=== PATIENT | female | born 1960 | race Caucasian/White ===

== ENCOUNTER 2016-03-18 08:33 | Emergency (ER) | payer OTHER ==
[~2016-03-18] VITALS: Ht 132.1 cm; Wt 89.0 kg
[~2016-03-18 08:33] MED LIST: CIPR750T10 PO; FLAG500T PO; LORA0.5T PO; MOBI7.5T PO; PRAV10 PO; PRIN10TA PO; PROM25SU8 PO; ULTR50TA PO
[2016-03-18 08:37] VITALS: BP 184/132; PULSE 99; RESP 18; TEMP 99.5; O2SAT 97
[2016-03-18] MEDS ORDERED: TRAM50TA PO (08:58)
[2016-03-18] MEDS ORDERED: MOBI7.5T PO (08:58)
[2016-03-18] MEDS ORDERED: LISI10TA3 PO (08:58)
[2016-03-18] MEDS ORDERED: LORA-373 PO (08:58)
[2016-03-18] MEDS ORDERED: PRAV20TA PO (08:58)
[2016-03-18] MEDS ORDERED: PROM25TA5 PO (09:12)
[2016-03-18] MEDS ORDERED: CIPR-9 PO (09:12)
[2016-03-18] MEDS ORDERED: METR-1 PO (09:12)
--- NOTE | 2016-03-18 09:13 | PD ---
HPI Chief Complaint: GI Complaint Time Seen by Provider: 09:07 Travel History International Travel<30 days: No Contact w/Intl Traveler<30days: No Traveled to known affect area: No History of Present Illness HPI Patient presents with complaints of left lower quadrant abdominal pain. Recurrent diverticulitis. Denies any blood per stool. Followed by gastroenterology for history of GI bleed and the aforementioned recurrent diverticulitis. Reports mild nausea. Denies vomiting. Denies fever. No new rashes. PFSH Past Medical History Arthritis: Yes (knee right) Asthma: No Autoimmune Disease: No Anxiety: Yes Depression: No Heart Rhythm Problems: No Cancer: Yes ( L BREAST CA 1993) Cardiovascular Problems: Yes (HTN) High Cholesterol: Yes Chemotherapy: No Chest Pain: No Congestive Heart Failure: No COPD: No Cerebrovascular Accident: No Diabetes: Yes (DIET CONTROLLED) Patient Takes Glucophage: No Diminished Hearing: No Diverticulitis: Yes Endocrine: Yes Gastrointestinal Disorders: Yes GERD: No Genitourinary: No Hiatal Hernia: No Hypertension: Yes Immune Disorder: No Kidney Stones: Yes Musculoskeletal: Yes (SPINAL STENOSIS) Neurologic: No Psychiatric: Yes Reproductive: No Respiratory: No Immunizations Current: Yes Migraines: No Pneumonia: Yes (CHILDHOOD) Radiation Therapy: Yes Renal Failure: No Seizures: No Sickle Cell Disease: No Sleep Apnea: No Thyroid Disease: No Ulcer: Yes (bleeding ulcer in the past) PNEUMOCCOCAL Vaccine (Year): 2009 ?: Not Menopausal: Yes : 5 Para: 0 Miscarriage: 5 Ectopic : Yes (1993) Past Surgical History Abdominal Surgery: Yes AICD: No Arteriovenous Shunt: No Cardiac Surgery: No Cholecystectomy: Yes (2006) Ear Surgery: Yes (BILATERAL MYRINGOTOMIES) Endocrine Surgery: No Eye Surgery: No Genitourinary Surgery: No Gynecologic Surgery: Yes (LEFT BREAST LUMPECTOMIES X2) Hysterectomy: Yes Insulin Pump: No Joint Replacement: Yes (right knee) Neurologic Surgery: Yes (LUM JONES) Oral Surgery: No Pacemaker: No Thoracic Surgery: No Tonsillectomy: Yes Other Surgery: Yes (LUMBAR LAMI) Social History Alcohol Use: Yes (1-2 EVERY SIX MONTHS) Tobacco Use: No Substance Use: No Allergies-Medications (Allergen,Severity, Reaction): Coded Allergies: Penicillin (Verified Allergy, Severe, HIVES, 03/18/16) Reported Meds & Prescriptions Reported Meds & Active Scripts Active Reported Pravachol (Pravastatin) 20 Mg Tab 20 Mg PO DAILY Tramadol (Tramadol HCl) 50 Mg Tab 50 Mg PO Q4H PRN Mobic (Meloxicam) 7.5 Mg Tab 7.5 Mg PO DAILY Lorazepam 0.5 Mg Tab 0.5 Mg PO HS PRN Lisinopril 10 Mg Tab 10 Mg PO DAILY Review of Systems General / Constitutional: No: Fever Eyes: No: Visual changes HENT: No: Headaches Cardiovascular: No: Chest Pain or Discomfort Respiratory: No: Shortness of Breath Gastrointestinal: Positive: Nausea, Abdominal Pain Genitourinary: No: Dysuria Musculoskeletal: No: Pain Skin: No Rash Neurologic: No: Weakness Psychiatric: No: Depression Endocrine: No: Polydipsia Hematologic/Lymphatic: No: Easy Bruising Physical Exam Narrative GENERAL: Well-nourished, well-developed patient. SKIN: Warm and dry. HEAD: Normocephalic. EYES: No scleral icterus. No injection or drainage. NECK: Supple, trachea midline. No JVD or lymphadenopathy. CARDIOVASCULAR: Regular rate and rhythm without murmurs, gallops, or rubs. RESPIRATORY: Breath sounds equal bilaterally. No accessory muscle use. GASTROINTESTINAL: Abdomen soft, tender to palpation left lower quadrant, nondistended. MUSCULOSKELETAL: No cyanosis, or edema. BACK: Nontender without obvious deformity. No CVA tenderness. Data Data Last Documented VS Vital Signs Date Time Temp Pulse Resp B/P Pulse Ox O2 Delivery O2 Flow Rate FiO2 03/18/16 08:37 99.5 99 18 184/132 97 MDM Medical Decision Making Medical Screen Exam Complete: Yes Emergency Medical Condition: Yes Differential Diagnosis Diverticulitis, colitis, IBS Narrative Course Assessment and plan discussed with patient and at bedside Diagnosis Primary Impression: Diverticulitis Qualified Code: K57.32 - Diverticulitis of large intestine without perforation or abscess without bleeding Patient Instructions: General Instructions Additional Instructions: Encouraged high-fiber heart healthy diet. Encourage fluids. Encouraged to follow-up with GI Med/Other Pt SpecificInfo: Prescription(s) given Scripts Promethazine (Phenergan)25 Mg Tab25 Mg PO Q6H PRN (Nausea/Vomiting) #20 TAB Ref 0 Prov:Lincoln Miller MD 03/18/16 Metronidazole (Flagyl)500 Mg Zio509 Mg PO BID 10 Days Ref 0 Prov:Lincoln Miller MD 03/18/16 Ciprofloxacin (Cipro)500 Mg Pkg329 Mg PO BID 10 Days Ref 0 Prov:Lincoln Miller MD 03/18/16 Disposition: 01 DISCHARGE HOME Condition: Good Lincoln Miller MD Mar 18, 2016 09:13
== END 2016-03-18 09:20 | disposition home or self-care (01) ==
LOC: PHED 08:33
DX: K57.32 Diverticulitis of large intestine without perforation or abscess without bleeding (principal); R11.0 Nausea; I10 Essential (primary) hypertension; E11.9 Type 2 diabetes mellitus without complications; E78.00 Pure hypercholesterolemia, unspecified; Z87.19 Personal history of other diseases of the digestive system; Z87.39 Personal history of other diseases of the musculoskeletal system and connective tissue; Z85.3 Personal history of malignant neoplasm of breast; Z87.442 Personal history of urinary calculi; Z86.59 Personal history of other mental and behavioral disorders
CPT/HCPCS: 99283

== ENCOUNTER → 2016-05-08 | Day surgery (SDC) | payer OTHER ==
[~2016-05-08] MED LIST changes: +CIPR-9 PO; -CIPR750T10 PO; -FLAG500T PO; +HYDR-3533 PO; +LACTATED RINGER'S 1000 ML INJ 1,000 ML ONE; +LISI10TA3 PO; +LORA-373 PO; -LORA0.5T PO; +METR-1 PO; -PRAV10 PO; +PRAV20TA PO; -PRIN10TA PO; -PROM25SU8 PO; +PROM25TA5 PO; +PROPOFOL 200 MG/20 ML AMP IV ONE; +PROPOFOL 500 MG/50 ML BTL IV ONE; +TRAM50TA PO; -ULTR50TA PO
--- NOTE | 2016-05-08 10:22 | GIPROC ---
[facility] [address] [facility], [address] COLONOSCOPY PROCEDURE REPORT EXAM DATE: 05/08/2016 PATIENT NAME: Ayse Vazquez MR #: [id number] BIRTHDATE: 1960 ENDOSCOPIST: Marta Silver MD ORDER #: [id number] SPORTS ANALYST: Kamila Herrera RN STATUS: outpatient INDICATIONS: The patient is a 55 yr old female here for a colonoscopy due to h/o diverticolitis PROCEDURE PERFORMED: Colonoscopy, diagnostic MEDICATIONS: None and Per Anesthesia. PREP QUALITY: fair ESTIMATED BLOOD LOSS: None CONSENT: The patient understands the risks and benefits of the procedure and understands that these risks include, but are not limited to: sedation, allergic reaction, infection, perforation and/or bleeding. Alternative means of evaluation and treatment include, among others: physical exam, x-rays, and/or surgical intervention. The patient elects to proceed with this endoscopic procedure. medical equipment was checked for proper function. Hand hygiene and appropriate measures for infection prevention was taken. After the risks, benefits and alternatives of the procedure were thoroughly explained, Informed consent was verified, confirmed and timeout was successfully executed by the treatment team. A digital exam revealed no abnormalities of the rectum The EC-[id number] ([id number]) and [id number] ([id number]) endoscope was introduced through the anus and advanced to the cecum, which was identified by both the appendix and ileocecal valve. The instrument was then slowly withdrawn as the colon was fully examined. COLON FINDINGS: Moderate diverticulosis was noted throughout the entire examined colon. Some stool throughout the colon. The colon mucosa was otherwise normal. Retroflexed views revealed no abnormalities The scope was then completely withdrawn from the patient and the procedure terminated. ADVERSE EVENTS: There were no complications. IMPRESSIONS: 1. Moderate diverticulosis was noted throughout the entire examined colon 2. Some stool throughout the colon 3. The colon mucosa was otherwise normal 4. Retroflexed views revealed no abnormalities 5. Revealed no abnormalities of the rectum RECOMMENDATIONS: 1. Yearly hemoccult 2. High fiber diet RECALL: Return 5 years Colonoscopy Marta Silver MD eSigned: Marta Silver MD 05/08/2016 10:22 AM cc: Gen Garrett M.D. DOCUMENT ADDENDUM eSigned: Marta Silver MD 05/08/2016 10:37 AM Reason for addendum: [x] Correction of inaccurate information [ ] Recently acquired lab/pathology results [ ] Additional information Comments: referring doctor is doctor Butler please do not send copy to dr Garrett PATIENT NAME: Ayse Vazquez MR#: [id number]
== END | disposition home or self-care (01) ==
LOC: ESDC 08:35
PROVIDERS: ATTEND Hospitalist
DX: Z12.11 Encounter for screening for malignant neoplasm of colon (principal); K57.90 Diverticulosis of intestine, part unspecified, without perforation or abscess without bleeding
CPT/HCPCS: 00810; 45378; J7120

== ENCOUNTER 2016-05-31 09:53 | Emergency (ER) | payer OTHER ==
[~2016-05-31] VITALS: Ht 132.1 cm; Wt 88.0 kg
[~2016-05-31 09:53] MED LIST changes: -HYDR-3533 PO; -LACTATED RINGER'S 1000 ML INJ 1,000 ML ONE; -PROPOFOL 200 MG/20 ML AMP IV ONE; -PROPOFOL 500 MG/50 ML BTL IV ONE
[2016-05-31 10:02] VITALS: BP 183/117; PULSE 102; RESP 18; TEMP 98.6; O2SAT 96
[2016-05-31] MEDS ORDERED: HYDR-3533 PO ×2 (10:17→11:10)
--- NOTE | 2016-05-31 11:11 | PD ---
HPI Chief Complaint: Musculoskeletal Complaint Time Seen by Provider: 10:17 Travel History International Travel<30 days: No Contact w/Intl Traveler<30days: No Traveled to known affect area: No History of Present Illness HPI This is a 56 year-old woman, history of achondroplastic dwarfism, multiple orthopedic surgeries, presents emergent [place] of right knee pain. She had a right knee replacement done by a specialist in [place] about 2 years ago. She has intermittent pain with it. She states good days and bad days. Over the past couple days she's had worsening severe pain in the right knee. Pain is severe with standing, and exacerbated by bending or flexing. When she is lying flat she doesn't have much pain. She and swollen or not. She is not noticing any warmth or redness. No definite fevers or chills. She otherwise had been feeling generally well and healthy. She called orthopedic doctor they can't see her until June 08. History Past Medical History Narrative Medical Achondroplastic dwarfism Multiple orthopedic surgeries PNEUMOCCOCAL Vaccine (Year): 2009 Menopausal: Yes : 5 Para: 0 Social History Alcohol Use: Yes (1-2 EVERY SIX MONTHS) Tobacco Use: No Allergies-Medications (Allergen,Severity, Reaction): Coded Allergies: Penicillin (Verified Allergy, Severe, HIVES, 05/31/16) Reported Meds & Prescriptions Reported Meds & Active Scripts Active Lortab (Hydrocodone-Acetaminophen) 5-325 Mg Tab 1-2 Tab PO Q6H PRN Reported Lortab (Hydrocodone-Acetaminophen) 5-325 Mg Tab 1 Tab PO Q6H PRN Pravachol (Pravastatin) 20 Mg Tab 20 Mg PO DAILY Tramadol (Tramadol HCl) 50 Mg Tab 50 Mg PO Q4H PRN Mobic (Meloxicam) 7.5 Mg Tab 7.5 Mg PO DAILY Lisinopril 10 Mg Tab 10 Mg PO DAILY Review of Systems Except as stated in HPI: all other systems reviewed are Neg Physical Exam Narrative GENERAL: 56 year-old woman, little person, no acute distress. SKIN: Warm and dry. CARDIOVASCULAR: Warm and well perfused. RESPIRATORY: Normal rate and effort. MUSCULOSKELETAL: Focus examination the right knee reveals multiple surgical scars. Knee is not obviously swollen, or with effusion. She has crepitus with range of motion. She can passively range it to roughly 50 or 60. She has full strength against resistance. She has some mild pain on passive range of motion. There may be a slight amount of warmth to the knee but it's not obviously inflamed or warm. There is no redness. She localizes tenderness to the outside lower part of the knee. NEUROLOGICAL: Awake and alert. No gross deficits. Data Data Last Documented VS Vital Signs Date Time Temp Pulse Resp B/P Pulse Ox O2 Delivery O2 Flow Rate FiO2 05/31/16 10:02 98.6 102 18 183/117 96 Orders Knee, Complete (4vws) (05/31/16 ) [facility] Medical Decision Making Medical Screen Exam Complete: Yes Emergency Medical Condition: Yes Interpretation(s) Right knee x-ray: No acute fracture or malalignment. Status post remote arthroplasty. Differential Diagnosis Inflammation, bursitis, arthritis, septic arthritis, other Narrative Course Medical decision making 56 year-old woman with right knee pain. Most concerning consideration would be a septic arthritis. I don't see evidence of effusion, redness, or micromotion tenderness. There may be a little bit of warmth but it really difficult to discern. This definitely no elizabeth inflammation in the knee. She looks well. She has well preserved range of motion with the knee. We'll check an x-ray to make sure is no loosening of the hardware. We'll put her on a little bit a stronger pain medicine. She has follow-up in about a week with orthopedics. She understands that she'll watch for any worsening warmth redness pain or fevers, and if any of these develop or return to the emergency department. Diagnosis Primary Impression: Right knee pain Additional Instructions: Take Lortab if needed for pain in the right knee. Do not take tramadol and Lortab together. Use caution as this could cause constipation. Use over-the- counter laxatives for sciatic constipation prevent worsening problems. Continue normal activity with no prolonged standing or prolonged walking. Follow-up with your orthopedic doctor as scheduled. Return to the emergent [place] worsening pain, redness, swelling, fevers, or any other new or worsening symptoms. Med/Other Pt SpecificInfo: Prescription(s) given Scripts Hydrocodone-Acetaminophen (Lortab)5-325 Mg Tab1-2 Tab PO Q6H PRN (PAIN) #12 TAB Prov:Suhas Womack MD 05/31/16 Disposition: 01 DISCHARGE HOME Condition: Stable Suhas Womack MD May 31, 2016 11:10
--- NOTE | 2016-05-31 11:27 | RADHPO ---
EXAM DATE/TIME: 05/31/2016 10:40 [facility] COMPARISON: No previous studies available for comparison. INDICATIONS : Right knee pain with no known injury. MEDICAL HISTORY : Hypertension. Hypercholesterolemia. Diverticulitis. Ulcers. Renal calculi. Arthritis. Diabetic. SURGICAL HISTORY : Total knee replacement, left. Tonsillectomy. Cholecystectomy. Hysterectomy. Lumbar laminectomy. ENCOUNTER: Initial ACUITY: 3 days PAIN SCORE: 10/10 LOCATION: knee FINDINGS: A standard 4 view examination of the right knee was obtained and demonstrates that the patient is sta tus post arthroplasty. The femoral and tibial components are intact and in normal alignment. There is chronic deformity of the fibula with degenerative changes in the proximal tibiofibular joint. There are postoperative changes involving the patella. There is no acute fracture. CONCLUSION: 1. No acute fracture or malalignment. 2. Status post remote arthroplasty. Nnamdi Hale MD on May 31, 2016 at 11:22 Board Certified Radiologist. This report was verified electronically.
== END 2016-05-31 11:45 | disposition home or self-care (01) ==
LOC: PHEFT 09:53
DX: M25.561 Pain in right knee (principal); Q77.4 Achondroplasia; Z96.651 Presence of right artificial knee joint
CPT/HCPCS: 73564; 99283

== ENCOUNTER 2017-07-13 17:45 | Emergency (ER) | payer OTHER ==
[~2017-07-13] VITALS: Ht 132.1 cm; Wt 90.6 kg
[~2017-07-13 17:45] MED LIST changes: -CIPR-9 PO; +HYDR-3533 PO; -LORA-373 PO; -METR-1 PO; -PROM25TA5 PO
[2017-07-13 17:47] VITALS: PULSE 112; RESP 16; TEMP 98; O2SAT 97
[2017-07-13 18:20] LABS: BILIRUBIN, URINE NEG (NEG); BLOOD, URINE LARGE (NEG); GLUCOSE,URINE NEG (NEG); KETONE, URINE NEG (NEG); NITRITE,URINE NEG (NEG); URINE COLOR YELLOW (YELLW/STRAW); URINE LEUKOCYTE ESTERASE NEG (NEG)
--- NOTE | 2017-07-13 18:20 | PD ---
HPI Chief Complaint: Abdominal Pain Time Seen by Provider: 17:59 Travel History International Travel<30 days: No Contact w/Intl Traveler<30days: No Traveled to known affect area: No History of Present Illness HPI The patient was seen and examined in the presence of the nurse. This patient developed some left flank pain 3 hours ago. He was also on her left lower quadrant to a lesser degree. She did not have fever or hematuria or any urinary complaints. The pain lasted about 1 hour but has resolved. For the last 2 hours she is felt well but wanted to get it checked out. She has history of diverticulitis multiple times but this feels very different. She does not think she has diverticulitis. No alleviating factors. No exacerbating factors. Duration was 1 hour. PFSH Past Medical History Arthritis: Yes (knee right) Asthma: No Autoimmune Disease: No Anxiety: Yes Depression: No Heart Rhythm Problems: No Cancer: Yes ( L BREAST CA 1993) Cardiovascular Problems: Yes (HTN) High Cholesterol: Yes Chemotherapy: No Chest Pain: No Congestive Heart Failure: No COPD: No Cerebrovascular Accident: No Diabetes: Yes (DIET CONTROLLED) Diminished Hearing: No Diverticulitis: Yes Endocrine: Yes Gastrointestinal Disorders: Yes GERD: No Genitourinary: No Headaches: No Hiatal Hernia: No Heparin Induced Thrombocytopen: No Hypertension: Yes Immune Disorder: No Implanted Vascular Access Dvce: No Kidney Stones: Yes Musculoskeletal: Yes (SPINAL STENOSIS) Neurologic: No Psychiatric: Yes Reproductive: No Respiratory: No Immunizations Current: Yes Migraines: No Pneumonia: Yes (CHILDHOOD) Radiation Therapy: Yes Renal Failure: No Seizures: No Sickle Cell Disease: No Sleep Apnea: No Thyroid Disease: No Ulcer: Yes (bleeding ulcer in the past) PNEUMOCCOCAL Vaccine (Year): 2009 ?: Not Menopausal: Yes : 5 Para: 0 Miscarriage: 5 Ectopic : Yes (1993) Past Surgical History Abdominal Surgery: Yes AICD: No Arteriovenous Shunt: No Cardiac Surgery: No Cholecystectomy: Yes (2006) Ear Surgery: Yes (BILATERAL MYRINGOTOMIES) Endocrine Surgery: No Eye Surgery: No Genitourinary Surgery: No Gynecologic Surgery: Yes (LEFT BREAST LUMPECTOMIES X2) Hysterectomy: Yes Insulin Pump: No Joint Replacement: Yes (right knee) Neurologic Surgery: Yes (LUM JONES) Oral Surgery: No Pacemaker: No Thoracic Surgery: No Tonsillectomy: Yes Other Surgery: Yes (LUMBAR LAMI) Social History Alcohol Use: Yes (1-2 EVERY SIX MONTHS) Tobacco Use: No Substance Use: No Allergies-Medications (Allergen,Severity, Reaction): Coded Allergies: penicillin G (Verified Allergy, Severe, HIVES, 07/13/17) Reported Meds & Prescriptions Reported Meds & Active Scripts Active Reported Pravachol (Pravastatin) 20 Mg Tab 20 Mg PO DAILY Tramadol (Tramadol HCl) 50 Mg Tab 50 Mg PO Q4H PRN Mobic (Meloxicam) 7.5 Mg Tab 7.5 Mg PO DAILY Lisinopril 10 Mg Tab 10 Mg PO DAILY Review of Systems General / Constitutional: No: Fever Eyes: No: Visual changes HENT: No: Headaches Cardiovascular: No: Chest Pain or Discomfort Respiratory: No: Shortness of Breath Gastrointestinal: Positive: Abdominal Pain Genitourinary: Positive: Flank Pain, No: Dysuria Musculoskeletal: No: Pain Skin: No Rash Neurologic: No: Weakness Psychiatric: No: Depression Endocrine: No: Polydipsia Hematologic/Lymphatic: No: Easy Bruising Physical Exam Narrative GENERAL: Well-nourished, well-developed patient in no apparent distress. SKIN: Focused skin assessment reveals no rash and nodules. Skin is Warm and dry. HEAD: Atraumatic. Normocephalic. EYES: Pupils equal and round. No scleral icterus. No injection or drainage. ENT: No nasal bleeding or discharge. Mucous membranes pink and moist. NECK: Trachea midline. No JVD. CARDIOVASCULAR: Regular rate and rhythm. No murmur appreciated. RESPIRATORY: No accessory muscle use. Clear to auscultation. Breath sounds equal bilaterally. GASTROINTESTINAL: Abdomen soft, non-tender, nondistended. Hepatic and splenic margins not palpable. MUSCULOSKELETAL: No obvious deformities. No clubbing. No cyanosis. No edema. NEUROLOGICAL: Awake and alert. No obvious cranial nerve deficits. Motor grossly within normal limits. Normal speech. PSYCHIATRIC: Appropriate mood and affect; insight and judgment normal. Data Data Last Documented VS Vital Signs Date Time Temp Pulse Resp B/P (MAP) Pulse Ox O2 Delivery O2 Flow Rate FiO2 07/13/17 18:22 128/ 07/13/17 17:47 98.0 112 16 97 Orders Orders Urinalysis - C+S If Indicated (07/13/17 17:50) Labs Laboratory Tests Test 07/13/17 18:08 Urine Color YELLOW Urine Turbidity CLEAR Urine pH 7.0 Urine Specific [place] 1.010 Urine Protein NEG mg/dL Urine Glucose (UA) NEG mg/dL Urine Ketones NEG mg/dL Urine Occult Blood LARGE Urine Nitrite NEG Urine Bilirubin NEG Urine Urobilinogen 0.2 MG/DL Urine Leukocyte Esterase NEG Urine RBC 25-49 /hpf Urine WBC 3-5 /hpf Urine Squamous Epithelial Cells 0-5 /hpf Microscopic Urinalysis Comment CULT NOT INDICATED MDM Medical Decision Making Medical Screen Exam Complete: Yes Emergency Medical Condition: Yes Medical Record Reviewed: Yes Differential Diagnosis Kidney stone, diverticulitis, sciatica Narrative Course I have reviewed the patient's electronic medical record. Patient has been here many times for diverticulitis. She has had many CT scans of abdomen and pelvis. Urinalysis shows hematuria without infection Presentation is consistent with stone We discussed at length risks and benefits and alternatives of CT scanning. I offered to her. However given that her symptoms have resolved and she has acute onset of left flank pain and hematuria it seems consistent with stone disease. Recommend primary care and urology follow-up Return if she worsens I wrote her some medication for pain and nausea and a week of Flomax Diagnosis Primary Impression: Acute left flank pain Additional Impression: Hematuria Qualified Codes: R31.9 - Hematuria, unspecified Departure Forms: Tests/Procedures Additional Instructions: The patient was advised to follow up with their physician and return if they worsen. The patient was warned about potential sedation for the medications they will receive on prescription. Med/Other Pt SpecificInfo: Prescription(s) given Scripts Tamsulosin (Flomax) 0.4 Mg Cap 0.4 MG PO HS for Manage Prostate Problems, #7 CAP 0 Refills Prov: Jone Madera MD 07/13/17 Ondansetron (Zofran) 4 Mg Tab 4 MG PO Q6HR Y for NAUSEA OR VOMITING, #12 TAB 0 Refills Prov: Jone Madera MD 07/13/17 Oxycodone-Acetaminophen (Percocet) 5-325 mg Tab 1 TAB PO Q6H Y for PAIN, #12 TAB 0 Refills Prov: Jone Madera MD 07/13/17 Disposition: 01 DISCHARGE HOME Condition: Stable Jone Madera MD Jul 13, 2017 18:20
[2017-07-13 18:22] VITALS: BP_SYST 128
[2017-07-13 18:24] LABS: SQUAMOUS EPITHELIAL CELL URINE 0-5 /hpf (0-5)
[2017-07-13] MEDS ORDERED: PERC5TAB12 PO (18:40)
[2017-07-13] MEDS ORDERED: TAMS5CAP PO (18:40)
[2017-07-13] MEDS ORDERED: ZOFR4TAB PO (18:40)
== END 2017-07-13 19:06 | disposition home or self-care (01) ==
LOC: PHED 17:45
DX: R10.9 Unspecified abdominal pain (principal); R31.9 Hematuria, unspecified; M17.11 Unilateral primary osteoarthritis, right knee; F41.9 Anxiety disorder, unspecified; Z85.3 Personal history of malignant neoplasm of breast; I10 Essential (primary) hypertension; E78.00 Pure hypercholesterolemia, unspecified; E11.9 Type 2 diabetes mellitus without complications; Z87.442 Personal history of urinary calculi
CPT/HCPCS: 81001; 99283